=== PATIENT | female | born 1995 | race Caucasian/White ===

== ENCOUNTER → 2017-03-04 | Outpatient (CLI) | payer OTHER ==
--- NOTE | 2017-03-04 13:13 | KCIC ---
CHEST AP ONLY dated 03/04/2017 12:00 AM. Comparison: None. Clinical Indication: Positive PPD, 6 MONTHS Findings: Single upright portable exam performed. Heart and mediastinal contours are within normal limits. There is some mild patchy and linear perihilar opacities. No consolidation or pleural effusion. No pneumothorax. Impression: 1. No radiographic evidence of active tuberculosis. 2. Mild patchy and linear perihilar opacities, nonspecific. Consider acute or chronic bronchial inflammatory process. Electronically signed by: Elvis Musa MD (03/04/2017 1:09 PM) [id number]
== END | disposition home or self-care (01) ==
LOC: KCIC 12:35
PROVIDERS: ATTEND Nurse Practitioner Family
DX: R91.8 Other nonspecific abnormal finding of lung field (principal); R76.11 Nonspecific reaction to tuberculin skin test without active tuberculosis
CPT/HCPCS: 71010